=== PATIENT | female | born 1985 | race Two or more races ===

== ENCOUNTER → 2018-09-07 | Outpatient (CLI) | payer OTHER ==
[~2018-09-07] MED LIST: HYDR-3164 PO; METF500T16 PO; SENN1TAB70 PO
[2018-09-07 11:32] LABS: BASO % 1 % (0-3); EOS # 0.1 x10^3/uL (0.0-0.7); EOS % 1 % (0-3); HEMOGLOBIN 12.2 g/dL (12.0-15.5); LYMPH # 1.6 x10^3/uL (1.0-4.8); LYMPH % 25 % (24-48); MEAN CORPUSCULAR HEMOGLOBIN 25 pg (25-35); MEAN CORPUSCULAR HGB CONC 32 g/dL (31-37); MEAN CORPUSCULAR VOLUME 78 fL (79-100); MONO # 0.4 x10^3/uL (0.0-1.1); MONO % 6 % (0-9); NEUT # 4.4 x10^3uL (1.8-7.7); NEUT % 67 % (31-73); PLATELET COUNT 290 x10^3/uL (140-400); WHITE BLOOD COUNT 6.6 x10^3/uL (4.0-11.0)
[2018-09-07 11:36] LABS: ALBUMIN 3.5 g/dL (3.4-5.0); CALCIUM 8.9 mg/dL (8.5-10.1); CREATININE 0.9 mg/dL (0.6-1.0); GFR 72.6; POTASSIUM 3.8 mmol/L (3.5-5.1); TOTAL BILIRUBIN 0.4 mg/dL (0.2-1.0)
[2018-09-07 23:08] LABS: HEMOGLOBIN A1C 5.8 % (4.8-5.6)
--- NOTE | 2018-09-08 12:13 | NUR ---
JUST FAXED PRE - OP LAB REPORTS TO DR. PEÑA'S OFFICE FOR REVIEW AND RECEIVED TRANSMITTAL CONFIRMATION.
== END | disposition home or self-care (01) ==
LOC: SURGPAT 10:27
PROVIDERS: ATTEND Surgery
DX: K80.20 Calculus of gallbladder without cholecystitis without obstruction (principal)
CPT/HCPCS: 36415; 80048; 82040; 82247; 83036; 85025

== ENCOUNTER → 2018-09-14 | Day surgery (SDC) | payer OTHER ==
[~2018-09-14] VITALS: Ht 149.9 cm; Wt 80.7 kg
[~2018-09-14] MED LIST changes: +BUPIVAC MPF-EPI 0.5%-1:200000 30 ML VIAL. ONE; +DEXAMETHASONE SOD PHOS 4 MG/ML VIAL ONE; +FAMOTIDINE 20 MG/2 ML VIAL ONE; +GLUCAGON,HUMAN RECOMBINANT 1 MG/ML VIAL. ONE; +GLYCOPYRROLATE 1 MG/5 ML VIAL. ONE; +HYDROcodone/APAP 5/325MG 1 TAB TABLET PO ONE; +HYDROmorphone 2 MG/ML VIAL IV PRN; +IOHEXOL 300 MG/ML 50 ML VIAL. ONE; +IV RINGERS,LACTATED 1000ML 1,000 ML IV SCH; +LIDOCAINE 2% PF 5 ML VIAL. ONE; +MORPHINE SULFATE 2 MG/ML VIAL. IV PRN; +NEOSTIGMINE METHYLSULFATE 5 MG/5 ML SYRINGE. ONE; +ONDANSETRON PF 4 MG/2 ML VIAL. IV PRN; +PROCHLORPERAZINE 10 MG/2 ML VIAL. IV PRN; +PROPOFOL 20 ML IV ONE; +ROCURONIUM 50 MG/5 ML VIAL. ONE; +SCOPOLAMINE 1.5MG PATCH. TD ONE; +SEVOFLURANE 61 TO 120 MINUTES. IH ONE; +SURGICEL HEMOSTAT 4X8 EACH. ONE; +SURGICEL HEMOSTAT 4X8 EACH. TP ONE; +ceFAZolin 2GM PREMIX 2 GM/50 ML BAG IV ONE; +fentaNYL PF VIAL 100 MCG/2 ML VIAL IV PRN; +fentaNYL PF VIAL 100 MCG/2 ML VIAL ONE; +fentaNYL PF VIAL 250 MCG/5 ML VIAL ONE
[2018-09-14 07:07] LABS: U PREG PATIENT NEGATIVE (NEG)
--- NOTE | 2018-09-14 08:34 | RAD ---
Intraoperative cholangiogram dated 09/14/2018. No comparison available. Clinical data indication: Laparoscopic cholecystectomy in OR. FINDINGS: 3 fluoroscopic images submitted. 0.22 minutes fluoroscopic time. Images show cannulation of the cystic duct with filling of the intrahepatic and extra hepatic biliary tree. The common duct is normal in caliber. No filling defect or stricture. Contrast material extends into proximal small bowel. IMPRESSION: Negative intraoperative cholangiogram. Electronically signed by: Jonny Humphrey MD (09/14/2018 8:31 AM) [facility]
--- NOTE | 2018-09-14 09:06 | DISCH ---
DISCHARGE INSTRUCTIONS Condition on Discharge Condition on Discharge: Stable Activity After Discharge Activity Instructions for Disc: Activity as tolerated, Avoid exertion Driving Instructions after Dis: Do not drive (2-3 days) Diet after Discharge Diet after Discharge: Regular Wound Incision Care Wound/Incision Care: Ice to area for comfort Other wound/incision instructi: august shower Wednesday Follow-Up Follow up with: Kamran Wednesday in office for drain removal BHAVESH PEÑA MD September 14, 2018 09:06
[2018-09-14] MEDS: fentaNYL PF VIAL 100 MCG/2 ML VIAL IV PRN ×4 (09:11→11:34)
--- NOTE | 2018-09-14 09:12 | PDOC ---
BRIEF OPERATIVE NOTE Date: September 14, 2018 Pre-Op Diagnosis symptomatic cholelithiasis Post-Op Diagnosis same Procedure Performed l/s cholecystectomy with cholangiograms Surgeon Kamran Mva Reactor Operator Head Anna OSULLIVANA Anesthesia Type: General Blood Loss 10cc IV Fluid 1000cc Specimens Obtained GB Findings supple GB, normal grams Complications none Operative Note Wk # [id number] BHAVESH PEÑA MD September 14, 2018 09:12
--- NOTE | 2018-09-14 10:30 | OP ---
DATE OF SURGERY: 09/14/2018 PREOPERATIVE DIAGNOSIS: Symptomatic cholelithiasis. POSTOPERATIVE DIAGNOSIS: Symptomatic cholelithiasis. PROCEDURE: Laparoscopic cholecystectomy with cholangiogram. SURGEON: Santiago Peña MD STUDIO HAND: HEIDI Reza ANESTHESIA: General endotracheal. ESTIMATED BLOOD LOSS: 10 mL. IV FLUIDS: 1 liter. INDICATIONS: The patient is a 32-year-old with epigastric and right upper quadrant pain after meals. Ultrasound shows stones. She is brought for cholecystectomy. OPERATIVE FINDINGS: The liver was smooth and sharp. The gallbladder was supple. Cholangiograms were normal. Visual inspection of the remainder of the abdomen showed some adhesions of the uterus to the right lower quadrant abdominal wall, otherwise unremarkable. OPERATIVE REPORT: The patient brought to the operating suite, given a general endotracheal anesthetic and the abdomen prepped and draped in usual sterile fashion. A supraumbilical incision was infiltrated with local anesthetic, incised, and a 5 mm Visiport used to safely gain access into the abdominal cavity taking care to avoid injury to abdominal contents. Pneumoperitoneum established. Camera inserted. Inspection carried out with results as noted above. With the table in reverse Trendelenburg rolled to the left, the epigastric, midclavicular and lateral ports were placed under direct vision. The gallbladder was retracted superolaterally and the cystic duct and cystic artery were identified. The duct was clipped on the gallbladder side. Cholangiograms were made. These were normal. In light of this, the catheter was removed. The cystic duct was clipped x 3 and divided taking care to avoid injury or compromise to the common duct. The cystic artery was clipped x 2 and divided and the gallbladder freed from the bed with cautery dissection and placed in an EndoCatch bag. Table returned to level. A 19-[place] round Terrell drain was brought through the epigastric port out the lateral port, sewn to the skin with a silk stitch and left in the subhepatic space for postoperative drainage. Hemostasis obtained in the fossa with a small piece of Surgicel and cautery. Gallbladder delivered through the epigastric incision. Epigastric incision closed with interrupted 0 Vicryl suture. Intra-abdominal pressure decreased to 6 cm of water. No bleeding from the epigastric closure or from the midclavicular port site after its removal or from the drain site. Abdomen decompressed, camera removed, no bleeding seen. Skin incisions closed with subcuticular 4-0 Monocryl. Steri-Strips and sterile dressings applied. The patient was awakened from her anesthetic and taken to the recovery room in satisfactory condition. SANTIAGO PEÑA MD DR: Steven JOB#: [id number] / [id number]
[2018-09-14 11:45] VITALS: BP 118/60
--- NOTE | 2018-09-16 09:07 | PATHOLOGY ---
[facility] Accession Number: [id number] . 01 Material submitted: . gallbladder - GALLBLADDER AND CONTENTS . 01 Clinical history: . symptomatic cholelithiasis . 02 Diagnosis: Gallbladder, laparoscopic cholecystectomy: - Cholelithiasis. - Cholesterolosis, focal. - Chronic cholecystitis. - Reactive changes of gallbladder neck lymph node. LBQ/09/15/2018 . 02 Comment: There is no evidence of malignancy. (JPM/db; 09/15/2018) . 02 Electronically signed: . John Alamo MD, Pathologist NPI- [id number] . 01 Gross description: . The specimen is received in formalin, labeled "SantiagoRodriguez, Aurelys, gallbladder", is intact, distended gallbladder measuring 7.7 cm in length and 2.5 cm in maximum diameter with a glistening, smooth and knight-green serosa. A 0.5 x 0.5 x 0.3 cm soft lymph node is identified in the region of the gallbladder neck. The cystic duct is patent. The gallbladder lumen contains yellow-carballo, viscous bile and irregular calculi and its fragments measuring 1.5 x 1.2 x 1.0 cm in aggregate. The mucosa is carballo-green and granular with focal areas of cholesterolosis. The wall is 0.1 cm in average thickness. Respiratory Care Assistant tissue is submitted in A1. ([facility] [employer] [employer]; 09/14/2018) SHS/SHS . 02 Pathologist provided ICD-10: K80.10, K82.4 . 02 CPT . 355440 Specimen Comment: A courtesy copy of this report has been sent to Specimen Comment: [phone], . Specimen Comment: Report sent to / DR SY Performed at: 01 [facility] [address], [place], [place] [id number] MD Felipe Matthews MD Phone: [phone] Performed at: 02 [facility] [address] [place], [place] [id number] MD John Alamo MD Phone: [phone]
== END | disposition home or self-care (01) ==
LOC: SURG 06:22 → EDUNIT# 08:00
PROVIDERS: ATTEND Surgery
DX: K80.10 Calculus of gallbladder with chronic cholecystitis without obstruction (principal); E11.9 Type 2 diabetes mellitus without complications; Z79.84 Long term (current) use of oral hypoglycemic drugs; Z98.890 Other specified postprocedural states
CPT/HCPCS: 47563; 74300; 81025; A7015; J0696; J1100; J2001; J2704; J2710; J3010; J3490; J7030; J7120; Q9967; 88304; J1610

== ENCOUNTER → 2020-01-19 | Outpatient (CLI) | payer BC, MEDICAID ==
[2018-09-14 11:45] VITALS: BP 118/60
[~2020-01-19] MED LIST changes: -BUPIVAC MPF-EPI 0.5%-1:200000 30 ML VIAL. ONE; -DEXAMETHASONE SOD PHOS 4 MG/ML VIAL ONE; -FAMOTIDINE 20 MG/2 ML VIAL ONE; -GLUCAGON,HUMAN RECOMBINANT 1 MG/ML VIAL. ONE; -GLYCOPYRROLATE 1 MG/5 ML VIAL. ONE; -HYDROcodone/APAP 5/325MG 1 TAB TABLET PO ONE; -HYDROmorphone 2 MG/ML VIAL IV PRN; -IOHEXOL 300 MG/ML 50 ML VIAL. ONE; -IV RINGERS,LACTATED 1000ML 1,000 ML IV SCH; -LIDOCAINE 2% PF 5 ML VIAL. ONE; -MORPHINE SULFATE 2 MG/ML VIAL. IV PRN; -NEOSTIGMINE METHYLSULFATE 5 MG/5 ML SYRINGE. ONE; -ONDANSETRON PF 4 MG/2 ML VIAL. IV PRN; -PROCHLORPERAZINE 10 MG/2 ML VIAL. IV PRN; -PROPOFOL 20 ML IV ONE; -ROCURONIUM 50 MG/5 ML VIAL. ONE; -SCOPOLAMINE 1.5MG PATCH. TD ONE; -SEVOFLURANE 61 TO 120 MINUTES. IH ONE; -SURGICEL HEMOSTAT 4X8 EACH. ONE; -SURGICEL HEMOSTAT 4X8 EACH. TP ONE; -ceFAZolin 2GM PREMIX 2 GM/50 ML BAG IV ONE; -fentaNYL PF VIAL 100 MCG/2 ML VIAL IV PRN; -fentaNYL PF VIAL 100 MCG/2 ML VIAL ONE; -fentaNYL PF VIAL 250 MCG/5 ML VIAL ONE
--- NOTE | 2020-01-19 16:38 | RAD ---
PELVIS COMPLETE History: Reason: Abnormal Uterine Bleeding / Spl. Instructions: / History: Comparison: None. Technique: Grayscale and color Doppler imaging of the pelvis was performed using transabdominal technique. Findings: The uterus measures 11.8 x 6.0 x 4.0 cm. Uterus has an unremarkable appearance. The endometrial stripe measures 2.5 mm. IUD noted within the upper endometrial canal. Right ovary measures 3.4 x 2.8 x 2.0 cm. Left ovary measures 3.6 x 2.8 x 1.9 cm. Normal Doppler flow to the ovaries. No adnexal masses are seen. IMPRESSION: 1. IUD noted within the upper endometrial canal. Electronically signed by: Galo Perez DO (01/19/2020 4:35 PM) DINES[place]
== END | disposition home or self-care (01) ==
LOC: US 11:25
PROVIDERS: ATTEND Obstetrics & Gynecology
DX: N93.9 Abnormal uterine and vaginal bleeding, unspecified (principal)
CPT/HCPCS: 76856

== ENCOUNTER → 2020-02-26 | Outpatient (CLI) | payer MEDICAID ==
[2018-09-14 11:45] VITALS: BP 118/60
== END ==
LOC: LAB 13:21
PROVIDERS: ATTEND Obstetrics & Gynecology
DX: Z01.812 Encounter for preprocedural laboratory examination (principal); Z20.828 Contact with and (suspected) exposure to other viral communicable diseases
CPT/HCPCS: U0003

== ENCOUNTER 2020-02-29 07:12 | Observation (INO) | payer MEDICAID ==
[2020-02-29] VITALS (10 sets, daily range): BP systolic 100–123; BP diastolic 59–74
[~2020-02-29] VITALS: Ht 149.9 cm; Wt 82.6 kg
[~2020-02-29 07:12] MED LIST changes: +BUPIVACAINE-EPI 0.25%-1:200000 MPF 30 ML VIAL. INJ ONE; +IV RINGERS,LACTATED 1000ML 1,000 ML IV SCH; +LIDOCAINE 1% PF 2 ML VIAL. ID PRN; +ONDANSETRON PF 4 MG/2 ML VIAL. IV PRN; +PROCHLORPERAZINE 10 MG/2 ML VIAL. IV PRN; +ceFAZolin SODIUM IV Push 1 GM VIAL. IVP PRN; +fentaNYL PF VIAL 100 MCG/2 ML VIAL IV PRN
[2020-02-29 07:55] LABS: BASO # 0.1 x10^3/uL (0.0-0.2); BASO % 1 % (0-3); EOS # 0.1 x10^3/uL (0.0-0.7); EOS % 1 % (0-3); HEMATOCRIT 37.8 % (36.0-47.0); HEMOGLOBIN 12.6 g/dL (12.0-15.5); LYMPH # 1.9 x10^3/uL (1.0-4.8); LYMPH % 27 % (24-48); MEAN CORPUSCULAR HEMOGLOBIN 26 pg (25-35); MEAN CORPUSCULAR HGB CONC 33 g/dL (31-37); MEAN CORPUSCULAR VOLUME 78 fL (79-100); MONO # 0.4 x10^3/uL (0.0-1.1); MONO % 5 % (0-9); NEUT # 4.8 x10^3/uL (1.8-7.7); NEUT % 66 % (31-73); PLATELET COUNT 326 x10^3/uL (140-400); RED BLOOD COUNT 4.86 x10^6/uL (3.50-5.40); WHITE BLOOD COUNT 7.2 x10^3/uL (4.0-11.0)
[2020-02-29] MEDS ORDERED: PROPOFOL 10 MG/ML (20ML) VIAL. IV ONE (08:39)
[2020-02-29] MEDS ORDERED: DEXAMETHASONE SOD PHOS 4 MG/ML VIAL ONE (08:39)
[2020-02-29] MEDS ORDERED: ONDANSETRON PF 4 MG/2 ML VIAL. ONE (08:39)
[2020-02-29] MEDS ORDERED: ROCURONIUM 50 MG/5 ML VIAL. ONE (08:39)
[2020-02-29] MEDS ORDERED: LIDOCAINE 2% PF 5 ML VIAL. ONE (08:39)
[2020-02-29] MEDS ORDERED: fentaNYL PF VIAL 250 MCG/5 ML VIAL ONE (08:39)
[2020-02-29] MEDS ORDERED: LIDOCAINE 1%/EPI 1:100,000 20 ML VIAL. ONE (09:09)
[2020-02-29] MEDS ORDERED: SURGICEL HEMOSTAT 4X8 EACH. ONE (09:09)
[2020-02-29] MEDS ORDERED: INDIGOTINDISULFONATE SODIUM 40 MG/5 ML AMPUL. ONE (09:09)
[2020-02-29] MEDS ORDERED: ESTROGENS, CONJ VAGINAL CREAM 30GM TUBE. ONE (09:09)
[2020-02-29] MEDS ORDERED: SEVOFLURANE 61 TO 120 MINUTES. IH ONE (09:32)
[2020-02-29] MEDS ORDERED: MIDAZOLAM HCL/PF 2 MG/2 ML VIAL. ONE (09:32)
[2020-02-29] MEDS ORDERED: GLYCOPYRROLATE 1 MG/5 ML VIAL. ONE (10:10)
[2020-02-29] MEDS ORDERED: NEOSTIGMINE METHYLSULFATE 5 MG/5 ML SYRINGE. ONE (10:10)
[2020-02-29] MEDS ORDERED: KETOROLAC 30 MG/ML VIAL. ONE (10:45)
[2020-02-29] MEDS ORDERED: fentaNYL PF VIAL 100 MCG/2 ML VIAL ONE (10:50)
--- NOTE | 2020-02-29 11:02 | PDOC ---
BRIEF OPERATIVE NOTE Date: Feb 29, 2020 Pre-Op Diagnosis 1. AUB 2. Menorrhagia Post-Op Diagnosis Same Procedure Performed [facility] Surgeon Dr. Brarera Anesthesia Type: General Blood Loss 50 ml Specimens Obtained cervix, uterus, jesi. fallopian tubes Findings enlarged uterus adhered to abd wall, nml fallopian tubes and ovaries with pelvic sidewall adhesions Complications none Operative Note see dictation GAYLE BARRERA Jr, MD Feb 29, 2020 11:01
[2020-02-29] MEDS ORDERED: 0.9 % SODIUM CHLORIDE 10 ML DISP.SYRIN. IV PRN (11:15)
[2020-02-29] MEDS ORDERED: CALCIUM CARBONATE 500 MG TAB.CHEW PO PRN (11:15)
[2020-02-29] MEDS ORDERED: DEXTROSE 50% 25 GM / 50ML DISP.SYRIN. IV PRN (11:15)
[2020-02-29] MEDS ORDERED: ONDANSETRON PF 4 MG/2 ML VIAL. IV PRN (11:15)
[2020-02-29] MEDS ORDERED: OPIUM/BELLADONNA 30/16.2MG SUPP.RECT. PR PRN (11:15)
[2020-02-29] MEDS ORDERED: diphenhydrAMINE HCL 25 MG CAPSULE PO PRN (11:15)
[2020-02-29] MEDS ORDERED: ZOLPIDEM 5 MG TABLET. PO PRN (11:15)
[2020-02-29] MEDS ORDERED: diphenhydrAMINE 50 MG/ML VIAL IV PRN (11:15)
[2020-02-29] MEDS ORDERED: PROCHLORPERAZINE 10 MG/2 ML VIAL. IV PRN (11:15)
[2020-02-29] MEDS ORDERED: MORPHINE SULFATE 2 MG/ML VIAL. ONE (11:27)
[2020-02-29] MEDS: MORPHINE SULFATE 2 MG/ML VIAL. IV PRN ×2 (11:29→11:37)
--- NOTE | 2020-02-29 11:29 | OP ---
DATE OF SURGERY: 02/29/2020 PREOPERATIVE DIAGNOSES: 1. Abnormal uterine bleeding. 2. Menorrhagia. POSTOPERATIVE DIAGNOSES: 1. Abnormal uterine bleeding. 2. Menorrhagia. PROCEDURE: LAVH. SURGEON: Gayle Barrera MD ANESTHESIA: GETA. ESTIMATED BLOOD LOSS: 50 mL. COMPLICATIONS: None. FINDINGS: Enlarged uterus adhered to abdominal wall, normal fallopian tubes and ovaries bilaterally with pelvic sidewall adhesions. COMPLICATIONS: None. SUMMARY: A 34-year-old with a long history of abnormal uterine bleeding and menorrhagia, unresponsive to medical treatment as well as to Mirena IUD that was still currently in place. The patient required hysterectomy. She was counseled on the risks, benefits and expectations and voiced clear understanding to proceed. DESCRIPTION OF PROCEDURE: The patient was taken to surgery suite and placed in dorsal lithotomy position. She was prepped with Betadine solution for vaginal prep and ChloraPrep for abdominal prep. After adequate anesthesia, bivalve speculum was placed vaginally. Anterior lip of the cervix grasped with single-tooth tenaculum. Valtchev uterine manipulator was then placed. The bivalve speculum was removed. Attention was now placed on the abdomen. Small transverse skin incision was made just above the umbilicus with a scalpel. The Veress needle was then placed through the supraumbilical incision site. The abdomen was insufflated up to 1.5 liters CO2 gas. The Veress needle was then removed. A 5-mm trocar was placed. The scope was positioned. The uterus was enlarged with dense adhesions to the abdominal wall as well as pelvic sidewall adhesions. Fallopian tubes and ovaries appeared normal bilaterally. Two additional incisions made in the left lower quadrant with a scalpel, in which a 5-mm trocar was placed. With the aid of graspers and EnSeal device, the pelvic sidewall adhesions were removed bilaterally. The right round ligament was coagulated and dissected. The right fallopian tube was dissected away from the pelvic sidewall. The right utero-ovarian pedicle was coagulated and dissected. The right broad ligament was coagulated and dissected. Portion of the dense adhesions of the uterus to the abdominal wall were dissected using countertraction and the EnSeal device. The left fallopian tube was dissected away from the pelvic sidewall and removed. The left utero-ovarian pedicle was coagulated and dissected. The left broad ligament and round ligament were coagulated and dissected. The uterus was much more mobile at this point; I therefore proceeded vaginally. Weighted speculum and curved Anna placed vaginally. The Valtchev uterine manipulator and single-tooth tenaculum were removed. Roe clamps were placed on the anterior and posterior lip of the cervix. A 1% lidocaine with epinephrine was injected in a circumferential manner. Bovie cautery was utilized to circumscribe the cervix. The vaginal mucosa was dissected away from the lower uterine segment using blunt dissection with a moist Ray-Bushra. Parametrial tissue were clamped bilaterally, cut, and suture ligated. We then entered the posterior cul-de-sac sharply using curved Trimble scissors. A long weighted speculum was placed. Uterosacral ligaments were clamped bilaterally, cut, and suture ligated. The cardinal ligaments were clamped bilaterally, cut, and suture ligated. The cervix was then detached; therefore, we used Meza retractor on the remaining part of the lower uterine segment for traction purposes. We entered the anterior cul-de-sac with blunt dissection. The uterus was then retroverted. There was one additional pedicle that was clamped with curved Hollie clamps, cut, and suture ligated. The remainder of the lower uterine segment and uterus and right fallopian tube were then removed. The pedicles were visualized and hemostatic. A modified Boucher culdoplasty incorporating the uterosacral ligaments bilaterally was performed with 0 Vicryl suture. The remainder of the vaginal cuff was reapproximated using 2-0 Vicryl suture in [id number] manner. Moist vaginal packing was placed. Attention was now placed on abdomen once again. The abdomen was insufflated up to 1.5 liters CO2 gas. The scope was positioned. The vaginal cuff was visualized and hemostatic. Both ovaries were visualized. Suction irrigation was utilized to verify good hemostasis. The trocars were then removed under direct visualization. The abdomen was allowed to deflate as much as possible along with mechanical manipulation. The 3 skin incisions were reapproximated using 4-0 Vicryl suture in a subcuticular manner. A 0.25% Marcaine with epinephrine was injected at each incision site. The patient tolerated the procedure well and was taken to recovery room in stable condition. Sponge and needle count correct x 3. GAYLE BARRERA MD DR: ISABEL/sol JOB#: [id number] / [id number]
[2020-02-29] MEDS ORDERED: HYDROmorphone 2 MG/ML VIAL ONE (11:38)
[2020-02-29] MEDS: HYDROmorphone 2 MG/ML VIAL IV PRN ×2 (11:40→11:53)
[2020-02-29] MEDS: SIMETHICONE 80 MG TAB.CHEW PO PRN ×2 (14:07→17:31)
[2020-02-29] MEDS: GABAPENTIN 300 MG CAPSULE. PO SCH ×2 (14:07→22:10)
[2020-02-29] MEDS: oxyCODONE/APAP 5/325 1 TAB TABLET PO PRN ×3 (17:31→23:57)
[2020-02-29] MEDS: KETOROLAC 30 MG/ML VIAL. IV PRN ×2 (17:32→23:57)
[2020-03-01 00:57] VITALS: BP 111/64
[2020-03-01] MEDS: oxyCODONE/APAP 5/325 1 TAB TABLET PO PRN ×3 (03:58→17:00)
[2020-03-01 04:00] VITALS: BP 92/53
[2020-03-01] MEDS: KETOROLAC 30 MG/ML VIAL. IV PRN (05:59)
[2020-03-01] MEDS: GABAPENTIN 300 MG CAPSULE. PO SCH ×2 (10:33→17:00)
[2020-03-01 11:09] VITALS: BP 105/56
[2020-03-01] MEDS ORDERED: FLU VACC QS 2020-21(6MOS+)/PF 0.5 ML SYRINGE. VAX IM ONE (11:30)
[2020-03-01 11:58] LABS: BASO # 0.1 x10^3/uL (0.0-0.2); BASO % 1 % (0-3); EOS # 0.1 x10^3/uL (0.0-0.7); EOS % 1 % (0-3); HEMATOCRIT 35.4 % (36.0-47.0); HEMOGLOBIN 11.3 g/dL (12.0-15.5); LYMPH # 1.9 x10^3/uL (1.0-4.8); LYMPH % 17 % (24-48); MEAN CORPUSCULAR HEMOGLOBIN 26 pg (25-35); MEAN CORPUSCULAR HGB CONC 32 g/dL (31-37); MEAN CORPUSCULAR VOLUME 80 fL (79-100); MONO # 0.5 x10^3/uL (0.0-1.1); MONO % 4 % (0-9); NEUT # 8.5 x10^3/uL (1.8-7.7); NEUT % 77 % (31-73); PLATELET COUNT 307 x10^3/uL (140-400); RED BLOOD COUNT 4.45 x10^6/uL (3.50-5.40); RED CELL DISTRIBUTION WIDTH 13.7 % (11.5-14.5); WHITE BLOOD COUNT 11.1 x10^3/uL (4.0-11.0)
--- NOTE | 2020-03-01 16:41 | PDOC ---
SURGICAL PROGRESS NOTE DATE: 03/01/20 TIME: 16:40 Subjective Pt. feeling well. No complaints. Pt. pain controlled, ambulating, voiding and tolerating regular diet. Vital Signs Vital Signs Date Time Temp Pulse Resp B/P (MAP) Pulse Ox O2 Delivery O2 Flow Rate FiO2 03/01/20 11:09 98.1 62 18 105/56 (72) 100 Room Air 98.1 03/01/20 04:00 I&O Intake and Output 03/01/20 07:00 Intake Total 1500 ml Output Total 2375 ml Balance -875 ml Intake IV Total 1500 ml Output Urine Total 2325 ml Estimated Blood Loss 50 ml PATIENT HAS A PARRISH: No General: Alert, Oriented X3, Cooperative HEENT: Atraumatic Lungs: Clear to auscultation Heart: Regular rate Abdomen: Normal bowel sounds, Soft Extremities: No edema Neuro: Normal gait Psych/Mental Status: Mental status NL Labs Laboratory Tests Test 02/29/20 07:36 02/29/20 07:42 03/01/20 11:45 White Blood Count 7.2 x10^3/uL (4.0-11.0) 11.1 x10^3/uL (4.0-11.0) Red Blood Count 4.86 x10^6/uL (3.50-5.40) 4.45 x10^6/uL (3.50-5.40) Hemoglobin 12.6 g/dL (12.0-15.5) 11.3 g/dL (12.0-15.5) Hematocrit 37.8 % (36.0-47.0) 35.4 % (36.0-47.0) Mean Corpuscular Volume 78 fL (79-100) 80 fL (79-100) Mean Corpuscular Hemoglobin 26 pg (25-35) 26 pg (25-35) Mean Corpuscular Hemoglobin Concent 33 g/dL (31-37) 32 g/dL (31-37) Red Cell Distribution Width 14.0 % (11.5-14.5) 13.7 % (11.5-14.5) Platelet Count 326 x10^3/uL (140-400) 307 x10^3/uL (140-400) Neutrophils (%) (Auto) 66 % (31-73) 77 % (31-73) Lymphocytes (%) (Auto) 27 % (24-48) 17 % (24-48) Monocytes (%) (Auto) 5 % (0-9) 4 % (0-9) Eosinophils (%) (Auto) 1 % (0-3) 1 % (0-3) Basophils (%) (Auto) 1 % (0-3) 1 % (0-3) Neutrophils # (Auto) 4.8 x10^3/uL (1.8-7.7) 8.5 x10^3/uL (1.8-7.7) Lymphocytes # (Auto) 1.9 x10^3/uL (1.0-4.8) 1.9 x10^3/uL (1.0-4.8) Monocytes # (Auto) 0.4 x10^3/uL (0.0-1.1) 0.5 x10^3/uL (0.0-1.1) Eosinophils # (Auto) 0.1 x10^3/uL (0.0-0.7) 0.1 x10^3/uL (0.0-0.7) Basophils # (Auto) 0.1 x10^3/uL (0.0-0.2) 0.1 x10^3/uL (0.0-0.2) Bedside Urine HCG, Qualitative Hcg negative (Negative) Laboratory Tests Test 03/01/20 11:45 White Blood Count 11.1 x10^3/uL (4.0-11.0) Red Blood Count 4.45 x10^6/uL (3.50-5.40) Hemoglobin 11.3 g/dL (12.0-15.5) Hematocrit 35.4 % (36.0-47.0) Mean Corpuscular Volume 80 fL (79-100) Mean Corpuscular Hemoglobin 26 pg (25-35) Mean Corpuscular Hemoglobin Concent 32 g/dL (31-37) Red Cell Distribution Width 13.7 % (11.5-14.5) Platelet Count 307 x10^3/uL (140-400) Neutrophils (%) (Auto) 77 % (31-73) Lymphocytes (%) (Auto) 17 % (24-48) Monocytes (%) (Auto) 4 % (0-9) Eosinophils (%) (Auto) 1 % (0-3) Basophils (%) (Auto) 1 % (0-3) Neutrophils # (Auto) 8.5 x10^3/uL (1.8-7.7) Lymphocytes # (Auto) 1.9 x10^3/uL (1.0-4.8) Monocytes # (Auto) 0.5 x10^3/uL (0.0-1.1) Eosinophils # (Auto) 0.1 x10^3/uL (0.0-0.7) Basophils # (Auto) 0.1 x10^3/uL (0.0-0.2) Assessment/Plan A: POD#1 s/p LAVH P: D/c home. Justicifation of Admission Dx: Justifications for Admission: Justification of Admission Dx: Yes GAYLE ADAME Jr, MD Mar 01, 2020 16:41
[2020-03-01] MEDS ORDERED: OXYC1TAB15 PO (16:44)
[2020-03-01] MEDS ORDERED: IBUP-1060 PO (16:44)
[2020-03-01] MEDS ORDERED: DOCU-109 PO (16:44)
--- NOTE | 2020-03-01 16:44 | DISCH ---
DISCHARGE INSTRUCTIONS Condition on Discharge Condition on Discharge: Stable Activity After Discharge Activity Instructions for Disc: Activity as tolerated, Avoid exertion Lifting Instructions after Dis: No heavy lifting Driving Instructions after Dis: Do not drive today, No driving for 2 weeks Diet after Discharge Diet after Discharge: Regular Wound Incision Care Wound/Incision Care: Ice to area for comfort Contacting the after DC Call your doctor for: Concerns you may have Follow-Up Follow up with: Dr. Barrera in 2 wks GAYLE BARRERA Jr, MD Mar 01, 2020 16:44
--- NOTE | 2020-03-05 08:10 | PATHOLOGY ---
[facility] Accession Number: [id number] . 01 Material submitted: . uterus - UTERUS AND CERVIX AND BILATERAL TUBES . 01 Clinical history: . ABNORMAL UTERINE BLEEDING . 02 Diagnosis: Uterus (total hysterectomy): - Squamous metaplasia of uterine cervix; negative for dysplasia and malignancy. - Chronic cervicitis. - Basalis endometrium; negative for hyperplasia, atypia and malignancy. - Adenomyosis. . Fallopian tubes (bilateral), excision: - Walthard rests, and endosalpingiosis involving fallopian tubes. - Negative for malignancy. (ALEXISK:poli; 03/04/2020) [facility] 03/05/2020 0755 Local . 02 Electronically signed: . Meño Miller MD, Pathologist NPI- [id number] . 01 Gross description: . The specimen is received in formalin labeled "Susan Perez, uterus and cervix, bilateral tubes". Received is a 90 g, 8.9 x 5.4 x 4.1 cm uterus with attached cervix, attached right fallopian tube weighing 1 g, and detached left fallopian tube weighing 1 g. The uterine serosa is predominantly absent on the anterior aspect, and is pink-carballo and smooth overlying the fundus and posterior aspects. Ectocervical mucosa is absent. The 0.5 cm slit-like opening is surrounded by pale carballo, ragged tissue. The uterus is oriented using the peritoneal reflection and the anterior paracervical margin is inked black. The uterus is opened laterally to reveal a pale carballo, slightly corrugated endocervical canal measuring 3.3 cm in length. The endometrial cavity is triangular measuring 4.3 cm in length by 1.8 cm in width. The endometrium is pink-carballo, glistening in appearance and measures 0.1 cm in thickness. Serial sectioning reveals a carballo-pink, trabeculated myometrium measuring up to 2.4 cm in thickness with no grossly distinct nodules or lesions. . The left fimbriated fallopian tube measures 2.9 cm in length by 0.4 cm in diameter. The serosal surface is inked black. Sectioning reveals a pinpoint lumen. . The right fimbriated fallopian tube measures 3.2 cm in length by 0.5 cm in diameter. Sectioning reveals a pinpoint to patent lumen. . Also received within the specimen container is a 3 g segment of cervix measuring 3.5 x 1.3 x 1.0 cm in greatest dimensions. The ectocervical mucosa is white-carballo and smooth in appearance. The specimen cannot be oriented. The specimen is submitted representatively as follows: . A1 anterior endocervical canal A2 posterior endocervical canal A3 anterior endomyometrium A4 posterior endomyometrium A5 sales representative womens health sections of fallopian tubes, one of which is differentially inked A6 sales representative womens health sections of separately submitted cervix. (CAA; 03/01/2020) QAC/QAC 03/01/2020 1104 Local . 02 Pathologist provided ICD-10: N87.9, N72, N80.0, N94.89 . 02 CPT . 387309 Specimen Comment: A courtesy copy of this report has been sent to [phone], [phone] Specimen Comment: [id number] Specimen Comment: Report sent to / Performed at: 01 [facility] [address], [place] [id number] MD Kamari Wayne MD Phone: [phone] Performed at: 02 [facility] [address] [place], [place] [id number] MD John Alamo MD Phone: [phone]
== END 2020-03-01 17:58 | disposition home or self-care (01) ==
LOC: SURG 07:12 → 3 NORTH 11:00
PROVIDERS: ADMIT Obstetrics & Gynecology; ATTEND Obstetrics & Gynecology
DX: N93.9 Abnormal uterine and vaginal bleeding, unspecified (principal); N92.0 Excessive and frequent menstruation with regular cycle; N85.2 Hypertrophy of uterus; N73.6 Female pelvic peritoneal adhesions (postinfective); Z23 Encounter for immunization
CPT/HCPCS: 36415; 58552; 81025; 85025; 86850; 86900; 86901; 88307; 90471; 90686; 96374; 96376; A7015; G0378; G0379; J0690; J1100; J1170; J1885; J2250; J2270; J2405; J2704; J2710; J3010; J3490; J7030; J7120

== ENCOUNTER 2020-07-15 08:50 | Emergency (ER) | payer MEDICAID ==
[~2020-07-15] VITALS: Ht 149.9 cm; Wt 83.0 kg
[~2020-07-15 08:50] MED LIST changes: -BUPIVACAINE-EPI 0.25%-1:200000 MPF 30 ML VIAL. INJ ONE; +DOCU-109 PO; +IBUP-1060 PO; -IV RINGERS,LACTATED 1000ML 1,000 ML IV SCH; -LIDOCAINE 1% PF 2 ML VIAL. ID PRN; -ONDANSETRON PF 4 MG/2 ML VIAL. IV PRN; +OXYC1TAB15 PO; -PROCHLORPERAZINE 10 MG/2 ML VIAL. IV PRN; -ceFAZolin SODIUM IV Push 1 GM VIAL. IVP PRN; -fentaNYL PF VIAL 100 MCG/2 ML VIAL IV PRN
--- NOTE | 2020-07-15 09:04 | PHYS DOC ---
General Adult EDM: Chief Complaint: VAGINAL BLEEDING HPI: HPI: 34-year-old female past medical history of menorrhagia status post abdominal hysterectomy (02/2020) with pathology results of adenomyosis and chronic cervicitis, no dysplasia or abnormal growth, presents to the ED with complaints of vaginal bleeding for the past 3 days. Patient states she had sexual intercourse with her male partner on Wednesday and vaginal bleeding started shortly thereafter. Reports she is only "spotted," described as scant amounts of vaginal blood on underwear, for the past 2 days. Patient reports she has had a difficult pain with intercourse ever since her hysterectomy 6 months ago, only has sex approximately 1 time per week. Also reports it is painful to pee and is concerned she has a urine infection-unsure of blood was with her urine or vagina-seen on underwear. Patient denies any flank pain, fever or chills, nausea or vomiting, flulike symptoms, abnormal vaginal discharge/itching/odor exertional dyspnea or syncope. Is in a monogamous relationship and is not concerned for STIs. Denies any trauma or lacerations. Review of Systems: Review of Systems: Constitutional: Denies fever or chills. [] Eyes: Denies change in visual acuity. [] HENT: Denies nasal congestion or sore throat. [] Respiratory: Denies cough or shortness of breath. [] Cardiovascular: Denies chest pain or edema. [] GI: Denies abdominal pain, nausea, vomiting, bloody stools or diarrhea. [] : Denies hematuria or flank pain Musculoskeletal: Denies back pain or joint pain. [] Integument: Denies rash or diaphoresis Neurologic: Denies headache, focal weakness or sensory changes. [] Endocrine: Denies polyuria or polydipsia. [] Lymphatic: Denies swollen glands. [] Psychiatric: Denies depression or anxiety. [] Heart Score: C/O Chest Pain: No Risk Factors: Risk Factors: DM, Current or recent (<one month) smoker, HTN, HLP, family history of CAD, obesity. Risk Scores: Score 0 - 3: 2.5% MACE over next 6 weeks - Discharge Home Score 4 - 6: 20.3% MACE over next 6 weeks - Admit for Clinical Observation Score 7 - 10: 72.7% MACE over next 6 weeks - Early Invasive Strategies Allergies: Allergies: Allergies Coded Allergies Type Severity Reaction Last Updated Verified No Known Drug Allergies 02/29/20 No Physical Exam: PE: Constitutional: Well developed, well nourished, no acute distress, non-toxic appearance. HENT: Normocephalic, atraumatic, Eyes: EOMI, conjunctiva normal, no discharge. Neck: Normal range of motion, supple, Cardiovascular: S1/2 present, regular rhythm Lungs & Thorax: Speaking in full sentences, bilateral equal chest rise, no tachypnea or increased work of breathing Abdomen: soft, no tenderness, Skin: Warm, dry, no erythema, no rash. [] Back: No tenderness, no CVA tenderness. [] Extremities: No tenderness, no cyanosis, no lower extremity edema Neurologic: Alert and oriented X 3, normal motor function, normal sensory function, no focal deficits noted. [] Psychologic: Affect normal, judgement normal, mood normal. [] Pelvic: Chaperoned by RN, external genitalia normal-no rash or ulcers, no vaginal bleeding, increased thick yellow discharge, cervical os closed, no cervical erythema, no CMT tenderness, mild left adnexal tenderness but no chandelier sign, tolerated exam well-tolerated speculum w/o significant distress EKG: EKG: [] Radiology/Procedures: Radiology/Procedures: []IMAGING REPORT Signed PATIENT: CLEMENTE MAYAACCOUNT: [id number] : 1985 LOCATION: ER AGE: 34 SEX: F EXAM STATUS: REG ER ORD. PHYSICIAN: JAVON VILLANUEVA DO REASON: left adnexal pain; Complete Hysterectomy per pt 02/2020 PROCEDURE: PELVIS W/TV US PELVIS W/TV Clinical Indication: Reason: left adnexal pain; Complete Hysterectomy per pt 02/2020 Comparison: None. TECHNIQUE: Real-time ultrasound imaging of the pelvis using transabdominal and transvaginal window is performed. Findings: Uterus is surgically absent. The vaginal cuff is unremarkable. There is mild pelvic free fluid seen in the midline. The ovaries are not identified. If not surgically absent, they may be obscured due to overlying bowel gas. There is no evidence of adnexal mass. IMPRESSION: 1. Mild pelvic free fluid. 2. The ovaries are not identified. Electronically signed by: Lars West MD (07/15/2020 12:01 PM) [id number] DICTATED and SIGNED BY: LARS WEST MD DATE: 07/15/20 [id number] Course & Med Decision Making: Course & Med Decision Making Pertinent Labs and Imaging studies reviewed. (See chart for details) Concern for chronic dyspareunia for 6 months with dysuria and vaginal bleeding versus hematuria. No vaginal bleeding on physical exam. Urinalysis with infection but no rbc/blood. No vaginal trauma - tolerated exam. Will tx empircally for GC and rx for BV and UTI. Will discharge home with strict ED return precautions were given for fever, back pain, flulike symptoms, nausea or vomiting or severe pain. Encouraged urgent outpatient follow-up with PMD to repeat urinalysis in 10 days and HEALTH BENEFITS SPECIALIST for evaluation of dyspareunia. Life- threatening processes were considered but are low suspicion at this time, given history, physical exam and ED workup. Pt was educated on all prescription medications and adverse effects. All patient's questions were answered and pt was stable at time of discharge. Life/limb-threatening differential includes but is not limited to, ectopic , septic , sepsis/infection (endometritis, sti/pid, cystitis, pyelonephritis, Phill's gangrene or necrotizing fasciitis, abscess), ovarian torsion, ruptured hemorrhagic ovarian cyst, endometriosis, ureterolithiasis, thrombophlebitis, hemorrhage/DIC, organ prolapse, abdominal aortic aneurysm, mesenteric ischemia, neoplasm, bowel obstruction or surgical abdomen. I spoken with the patient and her caregivers. I explained the patient's condition, diagnoses and treatment plan based on the information available to me at this time. I have answered the patient and her caregiver's questions and addressed any concerns. The patient and her caregivers have a good understanding of patient's diagnosis, condition and treatment plan as can be expected at this point. Vital signs have been stable. Patient's condition is stable and appropriate for discharge from the emergency department. Patient will pursue further outpatient evaluation with primary care physician or other designated or consulting physician as outlined in the discharge instructions. The patient and/or caregivers are agreeable to this plan of care and follow-up instructions have been explained in detail. The patient and/or caregivers have received these instructions in written form and have expressed an understanding of the discharge instructions. The patient and/or caregivers are aware that any significant change of condition or worsening of symptoms should prompt immediate return to this or the closest emergency department or call to [id number] Aleman Disclaimer: Love Disclaimer: This electronic medical record was generated, in whole or in part, using a voice recognition dictation system. Departure Departure Impression: Primary Impression: UTI (urinary tract infection) Additional Impressions: Dyspareunia Bacterial vaginosis Disposition: 01 DC HOME SELF CARE/HOMELESS Condition: STABLE Referrals: BASIM SY (PCP) in 10 day for re-evaluation Patient Instructions: Bacterial Vaginosis, Dyspareunia, Urinary Tract Infection Additional Instructions: FOLLOW UP WITH HEALTH BENEFITS SPECIALIST: [facility] Address: [address] [facility] [place], [address] [address] EMERGENCY DEPARTMENT GENERAL DISCHARGE INSTRUCTIONS Thank you for coming to [facility] Emergency Department (ED) today and trusting us with you care. We trust that you had a positive experience in our Emergency Department. If you wish to speak to the department management, you may call the Director at [phone]. YOUR FOLLOW UP INSTRUCTIONS ARE FOLLOWS: 1. Do you have a private Doctor? If you do not have a private doctor, please ask for a resource list of physicians or clinics that may be able to assist you with follow up care. 2. The Emergency Physicain has interpreted your x-rays. The X-Ray specialist will also review them. If there is a change in the findings, you will be notified in 48 hours when at all possible. 3. A lab test or culture has been done, your results will be reviewed and you will be notified if you need a change in treatment. ADDITIONAL INSTRUCTIONS AND INFORMATION: 1. Your care today has been supervised by a physician who is specially trained in emergency care. Many problems require more than one evaluation for a complete diagnosis and treatment. We recommend that you schedule your follow up appointment as recommended to ensure complete treatment of you illness or injury. If you are unable to obtain follow up care and continue to have a problem, or if your condition worsens, we recommend that you return to the ED. 2. We are not able to safely determine your condition over the phone nor are we able to give sound medical advice over the phone. For these safety reasons, if you call for medical advice we will ask you to come to the ED for further evaluation. 3. If you have any questions regarding these discharge instructions please call the ED at [phone]. SAFETY INFORMATION: In the interest of safety, wellness, and injury prevention; we encourage you to wear your sealbelt, if you smoke; quite smoking, and we encourage family to use a pr otective helmet for bicycling and other sporting events that present an increased risk for head injury. IF YOUR SYMPTOMS WORSEN OR NEW SYMPTOMS DEVELOP, OR YOU HAVE CONCERNS ABOUT YOUR CONDITION; OR IF YOUR CONDITION WORSENS WHILE YOU ARE WAITING FOR YOUR FOLLOW UP APPOINTMENT; EITHER CONTACT YOUR PRIMARY CARE DOCTOR, THE PHYSICIAN WHOSE NAME AND NUMBER YOU WERE GIVEN, OR RETURN TO THE ED IMMEDIATELY. Scripts Metronidazole (FLAGYL) 500 Mg Tablet 1 TAB PO BID for 7 Days, #14 TAB Prov: JAVON VILLANUEVA DO 07/15/20 Cephalexin (CEPHALEXIN) 500 Mg Tablet 1 TAB PO QID for 7 Days, #28 TAB Prov: JAVON VILLANUEVA DO 07/15/20 JAVON VILLANUEVA DO Jul 15, 2020 09:04
[2020-07-15 09:27] LABS: BILIRUBIN,URINE NEGATIVE (NEG); CLARITY,URINE CLEAR; COLOR,URINE YELLOW; NITRITE,URINE NEGATIVE (NEG); PROTEIN,URINE NEGATIVE (NEG-TRACE)
[2020-07-15 09:52] LABS: BACTERIA,URINE FEW /HPF (0-FEW); RBC,URINE 0 /HPF (0-2)
[2020-07-15 10:06] LABS: BASO % 1 % (0-3); EOS # 0.1 x10^3/uL (0.0-0.7); EOS % 2 % (0-3); HEMATOCRIT 38.8 % (36.0-47.0); HEMOGLOBIN 12.6 g/dL (12.0-15.5); LYMPH # 1.7 x10^3/uL (1.0-4.8); LYMPH % 28 % (24-48); MEAN CORPUSCULAR HEMOGLOBIN 25 pg (25-35); MEAN CORPUSCULAR HGB CONC 33 g/dL (31-37); MEAN CORPUSCULAR VOLUME 77 fL (79-100); MONO # 0.3 x10^3/uL (0.0-1.1); MONO % 6 % (0-9); NEUT % 64 % (31-73); PLATELET COUNT 289 x10^3/uL (140-400); WHITE BLOOD COUNT 6.2 x10^3/uL (4.0-11.0)
[2020-07-15 10:14] LABS: CALCIUM 8.4 mg/dL (8.5-10.1); CREATININE 0.7 mg/dL (0.6-1.0); GFR 95.8; POTASSIUM 3.8 mmol/L (3.5-5.1)
[2020-07-15 11:21] LABS: U PREG PATIENT NEGATIVE (NEG)
--- NOTE | 2020-07-15 12:03 | RAD ---
US PELVIS W/TV Clinical Indication: Reason: left adnexal pain; Complete Hysterectomy per pt 02/2020 Comparison: None. TECHNIQUE: Real-time ultrasound imaging of the pelvis using transabdominal and transvaginal window is performed. Findings: Uterus is surgically absent. The vaginal cuff is unremarkable. There is mild pelvic free fluid seen in the midline. The ovaries are not identified. If not surgically absent, they may be obscured due to overlying bowel gas. There is no evidence of adnexal mass. IMPRESSION: 1. Mild pelvic free fluid. 2. The ovaries are not identified. Electronically signed by: Lars West MD (07/15/2020 12:01 PM) [id number]
[2020-07-15] MEDS ORDERED: METR500T PO (12:56)
[2020-07-15] MEDS ORDERED: CEPH500T PO (12:56)
[2020-07-15] MEDS ORDERED: AZITHROMYCIN 250 MG TABLET. PO ONE (13:00)
[2020-07-15] MEDS ORDERED: cefTRIAXone IM 500 MG VIAL. IM ONE (13:00)
[2020-07-15 13:30] VITALS: BP 121/84
[2020-07-16 22:11] LABS: GC PROBE Negative (Negative)
== END 2020-07-15 13:55 | disposition home or self-care (01) ==
LOC: ER 08:50
DX: N39.0 Urinary tract infection, site not specified (principal); N76.0 Acute vaginitis; B96.89 Other specified bacterial agents as the cause of diseases classified elsewhere; N94.10 Unspecified dyspareunia; Z90.710 Acquired absence of both cervix and uterus
CPT/HCPCS: 36415; 76830; 76856; 80048; 81001; 81025; 85025; 85610; 85730; 87086; 87491; 87591; 96372; 99284; J0696; Q0111